=== PATIENT | female | born 1995 | race Caucasian/White ===

== ENCOUNTER → 2020-05-06 | Outpatient (CLI) | payer SELFPAY ==
[2020-05-06 08:52] VITALS: BP 117/69; PULSE 80; RESP 18; TEMP 98.4
--- NOTE | 2020-05-06 09:42 | P.HPOB ---
History of Present Illness H&P Date: 05/06/20 Chief Complaint: The patient is here for her routine gynecologic exam. This is a 24-year-old G0 with an LMP of 04/22/2020. She is on oral contraception and has been on some form of control since age 14. She is unsure of the name of the oral contraception she is taking. This was given to her by her primary care physician. She has used other forms of control including NuvaRing, which caused nausea, and Depo-Provera in the past. She is sexually active and does not plan on getting in the near future. She is without gynecologic complaints. Review of Systems She states she gained about 20 pounds when she was off work because of the Covid pandemic. She has gone back to work and has lost about 14 of those pounds. She denies respiratory or cardiac problems. GI: Occasional constipation or loose stools. Past Medical History Additional Past Medical History / Comment(s): Seasonal ALLERGIES. 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 No other STDs. Colposcopy done in 2018 with no additional treatment needed. History of Any Multi-Drug Resistant Organisms: None Reported Past Surgical History: Appendectomy Additional Past Surgical History / Comment(s): [place] teeth removed. Past Psychological History: Anxiety, Depression Smoking Status: Never smoker, Vaper Past Alcohol Use History: Occasional (3 per week) Past Drug Use History: Marijuana Additional History: She is single and has been with her boyfriend since January 2020. She has been sexually active since age 14 and has had 9 partners during her lifetime. She lives with her boyfriend. She works at [employer] in sales. - Past Family History Mother Additional Family Medical History / Comment(s): Bipolar disorder. Maternal great grandmother had breast cancer. Maternal grandfather had skin cancer. Father Family Medical History: No Reported History Additional Family Medical History / Comment(s): Paternal great grandmother had vaginal cancer. Medications and Allergies Home Medications and Allergies Comment(s): She is currently on oral contraception one daily but does not know the name of her control pill. Home Medications Medication Instructions Recorded Confirmed Type Cetirizine HCl 10 mg PO DAILY 05/06/20 05/06/20 History Sertraline [Zoloft] 50 mg PO DAILY 05/06/20 05/06/20 History Allergies Allergy/AdvReac Type Severity Reaction Status Date / Time No Known Allergies Allergy Unverified 05/06/20 08:48 Exam Vital Signs Temp Pulse Resp BP Pulse Ox 05/06/20 08:49 98.4 F 80 18 117/69 98 Intake and Output 05/05/20 05/06/20 05/06/20 22:59 06:59 14:59 Other: Weight 70.76 kg Height 5 feet 3-1/2 inches, weight 156 pounds, BMI 27.2. This is a well-developed well-nourished white female who is alert and oriented times 3 in no acute distress. HEENT: Within normal limits. NECK: Supple without mass or thyromegaly. CHEST AND LUNGS: Clear to auscultation. HEART: Regular rate and rhythm. BREASTS: Are without mass or discharge. AXILLARY EXAM: Negative for adenopathy. BACK: Negative for CVA tenderness. ABDOMEN: Soft, nontender, without palpable masses. PELVIC EXAM: Normal external genitalia. Cervix and vagina appear normal. There is no unusual discharge. There is no cervical motion tenderness. There is no evidence of prolapse. The uterus is midposition, nongravid size and nontender. There are no palpable adnexal masses or tenderness. RECTAL EXAM: Deferred. EXTREMITIES: Nontender. IMPRESSION: 1. 24-year-old female using oral contraception for control with normal gynecologic exam. PLAN: 1. Pap smear was performed. 2. Self breast awareness was discussed with the patient. 3. GC and Chlamydia testing was obtained from the cervix. 4. STD prevention was discussed. I have stressed the importance of limiting sexual partners. I have also recommended that she use condoms if she is sexually active. 5. We have had a long discussion regarding oral contraception including possible side effects and possible risks. The risks we've discussed include increased risk for blood clots such as DVT, PE, DE or stroke. She understands these things and would like to continue with control pills. She is uncertain of the name of the current control pill she is taking, she states she has been getting up from her PCP. She will know if she needs me to prescribe the pills for her. 6. She was advised to return in one year for her annual well woman exam and as needed.
[2020-05-08 08:17] LABS: C. trachomatis,PCR Negative (Neg,Equiv); Chlamydia trachomatis Source Cervix; N. gonorrhoeae,PCR Negative (Neg,Equiv); Neisseria Source Cervix
== END | disposition home or self-care (01) ==
LOC: WWCWWP 08:37
PROVIDERS: ATTEND Obstetrics & Gynecology
DX: Z11.3 Encounter for screening for infections with a predominantly sexual mode of transmission (principal)
CPT/HCPCS: 87491; 87591